=== PATIENT | male | born 1955 | race Caucasian/White ===

== ENCOUNTER → 2017-01-05 | Outpatient (CLI) | payer OTHER ==
[~2017-01-05] MED LIST: ANTI-DIARRHEAL2 M1 PO; BAYER CHEWABLE81 MG PO; BYSTOLIC2.5 MG PO; FOLIC ACID1 MG PO; HYDROCODONE-APA1 T54 PO; LEVAQUIN PO; LISINOPRIL10 MG PO; METRONIDAZOLE PO; PEN-VEE K PO; SINGULAIR PO; THIAMINE HCL100 M1 PO; [UNRECOGNIZED DRUG - REMARK]
--- NOTE | ~2017-01-05 | CT138 ---
[facility] A Service of [facility] RADIOLOGY TEXT RESULTS PATIENT: MIGUEL BERRY LOCATION: [facility] : 53 UNIT #: [id number] AGE: [address]: Abbi Hannon MD SEX: M ORDER DR: [id number] [address] [id number] O MR#: [id number] Acc #: [id number] NAME: MIGUEL BERRY : 1955 SEX: M STUDY DATE/TIME: 01/05/2017 13:07 UNIT: [facility] ROOM: STUDY DESCRIPTION: CT Lung screening initial Attending Physician: Abbi Hannon M.D. Ordering Physician: Marc Hannon M.D. Primary Care Physician: Abbi Hannon M.D. MEDICAL IMAGING REPORT This report is preliminary unless electronic signature is present EXAM CT lung cancer screening INDICATIONS Lung cancer screening. 30 pack year smoking history. PROCEDURE Noncontrast low-dose CT of the chest was performed per lung cancer screening protocol. CTDI is 3.0 mGy. Total DLP 128 mGy-cm. TECHNIQUE This CT exam was performed with one or more of the following radiation dose reduction techniques: automatic exposure control, adjustment of mA and/or kV according to patient size, and iterative reconstruction. COMPARISON None FINDINGS Centrilobular emphysema in the upper lobes. No suspicious pulmonary nodule. No pleural fluid or pneumothorax. No adenopathy. Coronary artery calcification. No acute findings in the included upper abdomen. No aggressive appearing bone lesion. IMPRESSION No suspicious pulmonary nodule. Lung-RADS category 1 negative. Per the ACR Lung-RADS recommendations suggest patient continue with annual low-dose lung cancer screening. Dictated by... Alexey De La Rosa M.D. [facility] A Service of [facility] RADIOLOGY TEXT RESULTS PATIENT: MIGUEL BERRY LOCATION: [facility] : 53 UNIT #: [id number] AGE: [address]: Abbi Hannon MD SEX: M ORDER DR: THIS IS AN ELECTRONICALLY VERIFIED REPORT Alexey De La Rosa M.D. at 01/19/2017 7:02 AM Mark TD: 01/05/2017 14:25 JOB #: [id number] MEDICAL IMAGING REPORT COPY
== END | disposition home or self-care (01) ==
LOC: CCAT 12:42
DX: F17.210 Nicotine dependence, cigarettes, uncomplicated (principal)
CPT/HCPCS: G0297

== ENCOUNTER 2017-01-24 15:28 | Emergency (ER) | payer OTHER | END 2017-01-24 16:08 | disposition home or self-care (01) | LOC: CED 15:28 | DX: S01.112A Laceration without foreign body of left eyelid and periocular area, initial encounter (principal); I10 Essential (primary) hypertension; Z88.5 Allergy status to narcotic agent; Z88.2 Allergy status to sulfonamides; Z88.8 Allergy status to other drugs, medicaments and biological substances; Z79.899 Other long term (current) drug therapy; Z79.82 Long term (current) use of aspirin; W01.198A Fall on same level from slipping, tripping and stumbling with subsequent striking against other object, initial encounter | CPT/HCPCS: 12011; 99283 ==